=== PATIENT | female | born 1995 | race Caucasian/White ===

== ENCOUNTER 2020-12-27 19:56 | Emergency (ER) | payer MEDICAID ==
[~2020-12-27] VITALS: Ht 162.6 cm; Wt 102.0 kg
[2020-12-27 19:58] VITALS: BP 139/83
[2020-12-27 21:19] LABS: BASOPHILS % 0.7 % (0.0-2.0); EOSINOPHILS % 3.4 % (0.0-5.0); HEMATOCRIT. 40.6 % (36.0-48.0); HEMOGLOBIN. 14.3 g/dL (12.0-16.0); LYMPHOCYTES % 24.6 % (20.0-50.0); MEAN CORPUSCULAR HEMOGLOBIN 32.5 pg (28.0-32.0); MEAN CORPUSCULAR VOLUME 92.1 fL (81.0-99.0); MEAN PLATELET VOLUME 9.2 fl (7.4-10.4); MONOCYTES % 9.5 % (2.0-8.0); NEUTROPHILS % 61.8 % (40.0-76.0); PLATELET 295 x1000/uL (130-400); RED BLOOD CELL COUNT 4.41 mill/uL (4.2-5.4); RED CELL DISTRIBUTION WIDTH 12.8 % (11.6-14.6)
[2020-12-27 21:22] LABS: CHLORIDE 106 mEq/L (98-107)
[2020-12-27 22:10] LABS: CLARITY URINE CLEAR (CLEAR); COLOR URINE YELLOW (YELLOW); KETONES URINE NEGATIVE (NEGATIVE); LEUKOCYTE ESTERASE URINE NEGATIVE (NEGATIVE); NITRITE URINE NEGATIVE (NEGATIVE); OCCULT BLOOD URINE 1+ (NEGATIVE); PH URINE 6.5 (4.5-8.0); PROTEIN URINE NEGATIVE (NEGATIVE); SPECIFIC GRAVITY URINE 1.007 (1.005-1.030); UROBILINOGEN URINE 0.2 E.U./dL (0.2-1.0)
[2020-12-27 22:33] LABS: *AMPHETAMINES SCREEN URINE NEGATIVE (NEGATIVE); *BARBITURATES SCREEN URINE NEGATIVE (NEGATIVE); *BENZODIAZEPINES SCREEN URINE NEGATIVE (NEGATIVE); *COCAINE SCREEN URINE NEGATIVE (NEGATIVE); METHADONE URINE SCREEN NEGATIVE (NEGATIVE); OPIATES URINE SCREEN NEGATIVE (NEGATIVE)
[2020-12-27 22:34] LABS: CANNABINOID URINE SCREEN NEGATIVE (NEGATIVE); PHENCYCLIDINE URINE SCREEN NEGATIVE (NEGATIVE)
== END 2020-12-27 23:20 | disposition home or self-care (01) ==
LOC: ER 19:56
DX: R55 Syncope and collapse (principal); R03.0 Elevated blood-pressure reading, without diagnosis of hypertension; R94.5 Abnormal results of liver function studies
CPT/HCPCS: 36415; 80053; 80305; 81003; 81025; 85025; 99283

== ENCOUNTER 2021-03-14 21:41 | Emergency (ER) | payer MEDICAID ==
[~2021-03-14] VITALS: Ht 162.6 cm; Wt 105.0 kg
[2021-03-14 22:06] VITALS: BP 122/78
[2021-03-14] MEDS ORDERED: IBUPROFEN 600MG TABLET PO STA (22:55)
[2021-03-14] MEDS ORDERED: OFLO5DRO4 LEFT EAR (23:57)
[2021-03-14] MEDS ORDERED: NAPR-681 PO (23:57)
[2021-03-14] MEDS ORDERED: CEPH500T PO (23:57)
== END 2021-03-15 00:06 | disposition home or self-care (01) ==
LOC: ER 21:41
DX: H60.92 Unspecified otitis externa, left ear (principal); J02.9 Acute pharyngitis, unspecified
CPT/HCPCS: 87070; 87430; 99283

== ENCOUNTER 2021-06-20 18:51 | Emergency (ER) | payer MEDICAID ==
[~2021-06-20 18:51] MED LIST: CEPH500T PO; NAPR-681 PO; OFLO5DRO4 LEFT EAR
== END 2021-06-20 20:07 | disposition left against medical advice (07) ==
LOC: ER 18:56
DX: Z53.21 Procedure and treatment not carried out due to patient leaving prior to being seen by health care provider (principal)

== ENCOUNTER 2021-06-27 15:13 | Emergency (ER) | payer MEDICAID ==
[~2021-06-27] VITALS: Ht 162.6 cm; Wt 104.0 kg
[2021-06-27 15:24] VITALS: BP 138/72
[2021-06-27] MEDS ORDERED: ACETAMINOPHEN 325MG TABLET PO ONE (16:00)
[2021-06-27] MEDS ORDERED: NAPROXEN 250MG TABLET PO NR (16:45)
[2021-06-27 16:53] LABS: CHLORIDE 106 mEq/L (98-107)
[2021-06-27 16:55] LABS: BASOPHILS % 0.3 % (0.0-2.0); EOSINOPHILS % 3.3 % (0.0-5.0); HEMATOCRIT. 40.2 % (36.0-48.0); HEMOGLOBIN. 13.6 g/dL (12.0-16.0); LYMPHOCYTES % 19.8 % (20.0-50.0); MEAN CORPUSCULAR HEMOGLOBIN 30.7 pg (28.0-32.0); MEAN CORPUSCULAR VOLUME 90.8 fL (81.0-99.0); MEAN PLATELET VOLUME 8.8 fl (7.4-10.4); MONOCYTES % 7.8 % (2.0-8.0); NEUTROPHILS % 68.8 % (40.0-76.0); PLATELET 337 x1000/uL (130-400); RED BLOOD CELL COUNT 4.43 mill/uL (4.2-5.4); RED CELL DISTRIBUTION WIDTH 12.9 % (11.6-14.6)
[2021-06-27 17:29] LABS: CLARITY URINE CLEAR (CLEAR); COLOR URINE YELLOW (YELLOW); KETONES URINE NEGATIVE (NEGATIVE); LEUKOCYTE ESTERASE URINE TRACE (NEGATIVE); NITRITE URINE NEGATIVE (NEGATIVE); OCCULT BLOOD URINE 1+ (NEGATIVE); PH URINE 6.5 (4.5-8.0); PROTEIN URINE NEGATIVE (NEGATIVE); SPECIFIC GRAVITY URINE 1.018 (1.005-1.030); UROBILINOGEN URINE 0.2 E.U./dL (0.2-1.0)
[2021-06-27] MEDS ORDERED: NITR-87 MT (18:23)
== END 2021-06-27 19:06 | disposition home or self-care (01) ==
LOC: ER 15:13
DX: N39.0 Urinary tract infection, site not specified (principal)
CPT/HCPCS: 36415; 76830; 76856; 80048; 81003; 81025; 85025; 99284

== ENCOUNTER 2021-07-07 20:25 | Emergency (ER) | payer MEDICAID ==
[~2021-07-07] VITALS: Ht 162.6 cm; Wt 109.0 kg
[~2021-07-07 20:25] MED LIST changes: +DILT300C53 MT; +NITR-87 MT
[2021-07-07] MEDS ORDERED: SODIUM CHLORIDE 0.9% 1,000 ML IV ONE (20:45)
[2021-07-07 21:21] LABS: BASOPHILS % 0.5 % (0.0-2.0); HEMATOCRIT. 44.1 % (36.0-48.0); HEMOGLOBIN. 14.8 g/dL (12.0-16.0); LYMPHOCYTES % 33.1 % (20.0-50.0); MEAN CORPUSCULAR VOLUME 92.3 fL (81.0-99.0); MEAN PLATELET VOLUME 9.1 fl (7.4-10.4); MONOCYTES % 10.5 % (2.0-8.0); NEUTROPHILS % 53.9 % (40.0-76.0); PLATELET 251 x1000/uL (130-400); RED BLOOD CELL COUNT 4.77 mill/uL (4.2-5.4); RED CELL DISTRIBUTION WIDTH 13.3 % (11.6-14.6)
[2021-07-07 21:24] LABS: CHLORIDE 106 mEq/L (98-107)
[2021-07-07 21:28] LABS: ETHANOL BLOOD < 10 mg/dL
[2021-07-07 21:38] LABS: HCG SCREEN NEGATIVE
[2021-07-07 22:03] LABS: CLARITY URINE CLEAR (CLEAR); COLOR URINE YELLOW (YELLOW); KETONES URINE NEGATIVE (NEGATIVE); LEUKOCYTE ESTERASE URINE TRACE (NEGATIVE); NITRITE URINE NEGATIVE (NEGATIVE); OCCULT BLOOD URINE 1+ (NEGATIVE); PH URINE 7.5 (4.5-8.0); PROTEIN URINE NEGATIVE (NEGATIVE); SPECIFIC GRAVITY URINE 1.009 (1.005-1.030); UROBILINOGEN URINE 0.2 E.U./dL (0.2-1.0)
[2021-07-07 22:12] LABS: *AMPHETAMINES SCREEN URINE NEGATIVE (NEGATIVE); *BARBITURATES SCREEN URINE NEGATIVE (NEGATIVE); *BENZODIAZEPINES SCREEN URINE NEGATIVE (NEGATIVE); *COCAINE SCREEN URINE NEGATIVE (NEGATIVE); METHADONE URINE SCREEN NEGATIVE (NEGATIVE)
[2021-07-07 22:13] LABS: CANNABINOID URINE SCREEN NEGATIVE (NEGATIVE); OPIATES URINE SCREEN NEGATIVE (NEGATIVE); PHENCYCLIDINE URINE SCREEN NEGATIVE (NEGATIVE)
[2021-07-07 23:50] VITALS: BP 118/63
== END 2021-07-07 23:59 | disposition home or self-care (01) ==
LOC: ER 20:25
DX: R07.89 Other chest pain (principal); F41.9 Anxiety disorder, unspecified; Z98.890 Other specified postprocedural states
CPT/HCPCS: 36415; 71045; 80053; 80305; 80320; 81003; 81025; 83690; 83880; 84484; 84703; 85025; 93005; 96360; 96361; 99285; J7030; G0480

== ENCOUNTER 2021-07-21 15:02 | Emergency (ER) | payer MEDICAID ==
[~2021-07-21] VITALS: Ht 162.6 cm; Wt 102.0 kg
[~2021-07-21 15:02] MED LIST changes: -CEPH500T PO; -NITR-87 MT
[2021-07-21 16:24] LABS: BASOPHILS % 0.3 % (0.0-2.0); EOSINOPHILS % 1.9 % (0.0-5.0); HEMATOCRIT. 41.1 % (36.0-48.0); HEMOGLOBIN. 13.7 g/dL (12.0-16.0); LYMPHOCYTES % 15.8 % (20.0-50.0); MEAN CORPUSCULAR HEMOGLOBIN 30.2 pg (28.0-32.0); MEAN CORPUSCULAR VOLUME 90.6 fL (81.0-99.0); MEAN PLATELET VOLUME 9.1 fl (7.4-10.4); MONOCYTES % 7.9 % (2.0-8.0); NEUTROPHILS % 74.1 % (40.0-76.0); PLATELET 342 x1000/uL (130-400); RED BLOOD CELL COUNT 4.53 mill/uL (4.2-5.4); RED CELL DISTRIBUTION WIDTH 12.6 % (11.6-14.6)
[2021-07-21 16:29] LABS: CHLORIDE 106 mEq/L (98-107)
[2021-07-21] MEDS ORDERED: POTASSIUM CHLORIDE 20MEQ TABLET SR PO ONE (17:45)
[2021-07-21 19:02] VITALS: BP 136/68
== END 2021-07-21 20:00 | disposition left against medical advice (07) ==
LOC: ER 15:02
DX: R00.2 Palpitations (principal); E87.6 Hypokalemia; Z98.890 Other specified postprocedural states
CPT/HCPCS: 36415; 71045; 80053; 84484; 85025; 93005; 99285

== ENCOUNTER 2022-07-24 17:58 | Emergency (ER) | payer MEDICAID ==
[~2022-07-24] VITALS: Ht 167.6 cm; Wt 80.0 kg
[2022-07-24] MEDS ORDERED: IBUPROFEN 600MG TABLET PO STA (23:12)
[2022-07-24] MEDS ORDERED: VANCOMYCIN 1G PREMIX 200 ML IV ONE (23:15)
[2022-07-24] MEDS ORDERED: PIPERACILLIN/TAZ 3.375G PREMIX 50 ML IV ONE (23:15)
[2022-07-24] MEDS ORDERED: SODIUM CHLORIDE 0.9% 1000ML BAG (SEPSIS BOLUS) IV ONE (23:15)
[2022-07-24 23:41] LABS: BASOPHILS % 0.3 % (0.0-2.0); EOSINOPHILS % 1.7 % (0.0-5.0); HEMATOCRIT. 40.7 % (36.0-48.0); HEMOGLOBIN. 13.9 g/dL (12.0-16.0); LYMPHOCYTES % 21.2 % (20.0-50.0); MEAN CORPUSCULAR HEMOGLOBIN 31.3 pg (28.0-32.0); MEAN CORPUSCULAR VOLUME 91.5 fL (81.0-99.0); MONOCYTES % 10.4 % (2.0-8.0); NEUTROPHILS % 66.4 % (40.0-76.0); PLATELET 284 x1000/uL (130-400); RED BLOOD CELL COUNT 4.45 mill/uL (4.2-5.4); RED CELL DISTRIBUTION WIDTH 13.5 % (11.6-14.6)
[2022-07-24 23:49] LABS: CHLORIDE 101 mEq/L (98-107)
[2022-07-24 23:50] LABS: PROTHROMBIN TIME 10.6 sec (9.6-11.0)
[2022-07-24 23:52] LABS: HCG SCREEN NEGATIVE
[2022-07-25 00:16] LABS: CLARITY URINE CLOUDY (CLEAR); COLOR URINE YELLOW (YELLOW); KETONES URINE TRACE (NEGATIVE); LEUKOCYTE ESTERASE URINE 2+ (NEGATIVE); NITRITE URINE NEGATIVE (NEGATIVE); OCCULT BLOOD URINE 2+ (NEGATIVE); PH URINE 6.5 (4.5-8.0); PROTEIN URINE TRACE (NEGATIVE); SPECIFIC GRAVITY URINE 1.019 (1.005-1.030); UROBILINOGEN URINE 0.2 E.U./dL (0.2-1.0)
[2022-07-25] MEDS ORDERED: CEPH500C2 MT (02:51)
[2022-07-25] MEDS ORDERED: IBUP-2028 MT (02:51)
[2022-07-25 03:08] VITALS: BP 122/79
[2022-07-25] MEDS ORDERED: IOHEXOL-300 100 ML BOTTLE ONE (04:42)
== END 2022-07-25 03:10 | disposition home or self-care (01) ==
LOC: ER 18:24
DX: N39.0 Urinary tract infection, site not specified (principal); J02.9 Acute pharyngitis, unspecified; M54.2 Cervicalgia; Z98.890 Other specified postprocedural states; Z20.822 Contact with and (suspected) exposure to COVID-19
CPT/HCPCS: 36415; 70491; 71045; 80053; 81003; 83605; 84145; 84443; 84484; 84703; 85025; 85379; 85610; 87040; 87070; 87086; 87426; 87430; 87804; 96374; 96375; 99285; J2543; J3370; J7030; Q9967

== ENCOUNTER 2022-09-17 16:46 | Emergency (ER) | payer MEDICAID ==
[~2022-09-17] VITALS: Ht 160 cm; Wt 100.0 kg
[~2022-09-17 16:46] MED LIST changes: +CEPH500C2 MT; +IBUP-2028 MT
[2022-09-17] MEDS ORDERED: SODIUM CHLORIDE 0.9% 1,000 ML IV ONE (17:15)
[2022-09-17] MEDS ORDERED: ACETAMINOPHEN 325MG TABLET PO ONE (17:15)
[2022-09-17] MEDS: ONDANSETRON 4MG ODT PO ONE ×2 (17:15→18:35)
[2022-09-17 17:20] VITALS: BP 122/84
[2022-09-17 17:44] LABS: BASOPHILS % 0.4 % (0.0-2.0); EOSINOPHILS % 2.6 % (0.0-5.0); HEMOGLOBIN. 13.2 g/dL (12.0-16.0); LYMPHOCYTES % 21.4 % (20.0-50.0); MEAN CORPUSCULAR VOLUME 91.7 fL (81.0-99.0); MEAN PLATELET VOLUME 9.1 fl (7.4-10.4); MONOCYTES % 7.5 % (2.0-8.0); NEUTROPHILS % 68.1 % (40.0-76.0); PLATELET 306 x1000/uL (130-400); RED BLOOD CELL COUNT 4.26 mill/uL (4.2-5.4); RED CELL DISTRIBUTION WIDTH 13.4 % (11.6-14.6)
[2022-09-17 17:53] LABS: CHLORIDE 105 mEq/L (98-107)
[2022-09-17 18:03] LABS: HCG SCREEN NEGATIVE
[2022-09-17 18:10] LABS: ETHANOL BLOOD < 10 mg/dL
== END 2022-09-17 23:15 | disposition home or self-care (01) ==
LOC: ER 16:46
DX: R42 Dizziness and giddiness (principal); R00.0 Tachycardia, unspecified; R00.2 Palpitations; Z87.440 Personal history of urinary (tract) infections
CPT/HCPCS: 36415; 71045; 80053; 80320; 83690; 83880; 84443; 84484; 84703; 85025; 85379; 93005; 96360; 99285; J7030; Q0162; G0480

== ENCOUNTER 2022-11-30 18:20 | Emergency (ER) | payer MEDICAID ==
[~2022-11-30] VITALS: Ht 167.6 cm; Wt 91.0 kg
[2022-11-30] MEDS ORDERED: NITROGLYCERIN 0.4MG TABLET SL SL PRN (19:00)
[2022-11-30] MEDS ORDERED: SODIUM CHLORIDE 0.9% 1,000 ML IV ONE (19:00)
[2022-11-30] MEDS ORDERED: ASPIRIN 81MG TABLET PO ONE (19:00)
[2022-11-30] MEDS ORDERED: CEFTRIAXONE 1GM PREMIX 50 ML IV ONE (19:00)
[2022-11-30 19:18] LABS: BASOPHILS % 0.5 % (0.0-2.0); EOSINOPHILS % 2.4 % (0.0-5.0); HEMATOCRIT. 40.5 % (36.0-48.0); HEMOGLOBIN. 13.7 g/dL (12.0-16.0); LYMPHOCYTES % 19.5 % (20.0-50.0); MEAN CORPUSCULAR HEMOGLOBIN 30.5 pg (28.0-32.0); MEAN CORPUSCULAR VOLUME 90.2 fL (81.0-99.0); MEAN PLATELET VOLUME 9.5 fl (7.4-10.4); MONOCYTES % 7.5 % (2.0-8.0); NEUTROPHILS % 70.1 % (40.0-76.0); PLATELET 308 x1000/uL (130-400); RED BLOOD CELL COUNT 4.49 mill/uL (4.2-5.4); RED CELL DISTRIBUTION WIDTH 13.7 % (11.6-14.6)
[2022-11-30 19:25] LABS: CHLORIDE 107 mEq/L (98-107)
[2022-11-30 19:28] LABS: HCG SCREEN POSITIVE
[2022-11-30 20:26] LABS: D-DIMER 0.49 mg/L FEU (<0.50); PARTIAL THROMBOPLASTIN TIME 28.2 sec (23.4-31.0); PROTHROMBIN TIME 10.5 sec (9.6-11.0)
[2022-11-30] MEDS ORDERED: AZITHROMYCIN 500 MG TABLET PO ONE (21:45)
[2022-11-30] MEDS ORDERED: LABE100T9 MT (21:52)
[2022-11-30 22:00] VITALS: BP 112/89
== END 2022-11-30 22:48 | disposition home or self-care (01) ==
LOC: ER 18:20
DX: I47.1 Supraventricular tachycardia (principal); N89.8 Other specified noninflammatory disorders of vagina; Z98.890 Other specified postprocedural states
CPT/HCPCS: 36415; 71045; 76801; 76817; 80053; 81025; 84484; 84702; 84703; 85025; 85379; 85610; 85730; 87491; 87591; 93005; 96361; 96365; 99285; J0696; J7030; Z7610

== ENCOUNTER 2022-12-04 16:14 | Emergency (ER) | payer MEDICAID ==
[~2022-12-04] VITALS: Ht 167.6 cm; Wt 85.0 kg
[~2022-12-04 16:14] MED LIST changes: +LABE100T9 MT
[2022-12-04] MEDS ORDERED: DILTIAZEM HCL 5MG/ML 5ML VIAL IV ONE (17:00)
[2022-12-04] MEDS ORDERED: SODIUM CHLORIDE 0.9% 1,000 ML IV ONE (17:00)
[2022-12-04 17:10] LABS: BASOPHILS % 0.3 % (0.0-2.0); EOSINOPHILS % 1.7 % (0.0-5.0); HEMATOCRIT. 40.7 % (36.0-48.0); HEMOGLOBIN. 13.9 g/dL (12.0-16.0); LYMPHOCYTES % 17.1 % (20.0-50.0); MEAN CORPUSCULAR HEMOGLOBIN 30.8 pg (28.0-32.0); MEAN CORPUSCULAR VOLUME 90.1 fL (81.0-99.0); MEAN PLATELET VOLUME 9.1 fl (7.4-10.4); MONOCYTES % 8.1 % (2.0-8.0); NEUTROPHILS % 72.8 % (40.0-76.0); PLATELET 340 x1000/uL (130-400); RED BLOOD CELL COUNT 4.52 mill/uL (4.2-5.4); RED CELL DISTRIBUTION WIDTH 13.5 % (11.6-14.6)
[2022-12-04 17:17] LABS: CHLORIDE 108 mEq/L (98-107)
[2022-12-04 17:30] LABS: B-HCG QUANTITATIVE 52 mIU/mL (<3)
[2022-12-04 21:26] LABS: CLARITY URINE CLEAR (CLEAR); COLOR URINE YELLOW (YELLOW); KETONES URINE NEGATIVE (NEGATIVE); LEUKOCYTE ESTERASE URINE TRACE (NEGATIVE); NITRITE URINE NEGATIVE (NEGATIVE); OCCULT BLOOD URINE 1+ (NEGATIVE); PROTEIN URINE NEGATIVE (NEGATIVE); SPECIFIC GRAVITY URINE 1.015 (1.005-1.030); UROBILINOGEN URINE 0.2 E.U./dL (0.2-1.0)
[2022-12-04] MEDS ORDERED: METR-167 MT (21:55)
[2022-12-04 23:07] VITALS: BP 120/75
== END 2022-12-04 23:14 | disposition home or self-care (01) ==
LOC: ER 16:14
DX: R00.2 Palpitations (principal); F41.9 Anxiety disorder, unspecified; Z87.440 Personal history of urinary (tract) infections; Z79.899 Other long term (current) drug therapy
CPT/HCPCS: 36415; 71045; 76801; 76817; 80053; 81003; 81025; 83880; 84443; 84484; 84702; 85025; 87210; 93005; 96361; 96374; 99291; J3490; J7030; Z7610

== ENCOUNTER 2022-12-19 00:51 | Emergency (ER) | payer MEDICAID ==
[~2022-12-19] VITALS: Ht 162.6 cm; Wt 102.0 kg
[~2022-12-19 00:51] MED LIST changes: +METR-167 MT
[2022-12-19 00:59] VITALS: BP 118/91
[2022-12-19 01:30] LABS: BASOPHILS % 0.5 % (0.0-2.0); EOSINOPHILS % 3.9 % (0.0-5.0); HEMATOCRIT. 38.3 % (36.0-48.0); HEMOGLOBIN. 13.1 g/dL (12.0-16.0); LYMPHOCYTES % 28.1 % (20.0-50.0); MEAN CORPUSCULAR HEMOGLOBIN 30.9 pg (28.0-32.0); MEAN CORPUSCULAR VOLUME 90.6 fL (81.0-99.0); MEAN PLATELET VOLUME 8.5 fl (7.4-10.4); MONOCYTES % 8.6 % (2.0-8.0); NEUTROPHILS % 58.9 % (40.0-76.0); PLATELET 333 x1000/uL (130-400); RED BLOOD CELL COUNT 4.23 mill/uL (4.2-5.4); RED CELL DISTRIBUTION WIDTH 13.7 % (11.6-14.6)
[2022-12-19 01:37] LABS: CLARITY URINE CLEAR (CLEAR); COLOR URINE YELLOW (YELLOW); KETONES URINE NEGATIVE (NEGATIVE); LEUKOCYTE ESTERASE URINE 2+ (NEGATIVE); NITRITE URINE NEGATIVE (NEGATIVE); OCCULT BLOOD URINE 1+ (NEGATIVE); PH URINE 6.5 (4.5-8.0); PROTEIN URINE NEGATIVE (NEGATIVE); SPECIFIC GRAVITY URINE 1.014 (1.005-1.030); UROBILINOGEN URINE 0.2 E.U./dL (0.2-1.0)
[2022-12-19 01:38] LABS: INR 0.9; PROTHROMBIN TIME 9.9 sec (9.6-11.0)
[2022-12-19 01:41] LABS: CHLORIDE 107 mEq/L (98-107)
[2022-12-19] MEDS ORDERED: ONDA4TAB50 PO (03:37)
[2022-12-19] MEDS ORDERED: BISM262T15 PO (03:37)
[2022-12-19] MEDS ORDERED: NAPR-681 PO (03:37)
== END 2022-12-19 04:20 | disposition home or self-care (01) ==
LOC: ER 01:18
DX: K52.9 Noninfective gastroenteritis and colitis, unspecified (principal); R11.2 Nausea with vomiting, unspecified; M54.9 Dorsalgia, unspecified; F41.9 Anxiety disorder, unspecified; R00.0 Tachycardia, unspecified; Z87.440 Personal history of urinary (tract) infections
CPT/HCPCS: 36415; 71045; 80053; 81003; 81025; 84484; 85025; 93005; 99285

== ENCOUNTER 2022-12-29 13:31 | Emergency (ER) | payer MEDICAID ==
[~2022-12-29] VITALS: Ht 165.1 cm; Wt 91.0 kg
[~2022-12-29 13:31] MED LIST changes: +BISM262T15 PO; +ONDA4TAB50 PO
[2022-12-29] MEDS ORDERED: ONDANSETRON HCL 4MG/2ML INJ IV STA (13:50)
[2022-12-29] MEDS ORDERED: KETOROLAC 30MG/ML VIAL IV STA (13:50)
[2022-12-29 13:51] VITALS: O2SAT 100
[2022-12-29] MEDS ORDERED: SODIUM CHLORIDE 0.9% 1,000 ML IV ONE (14:00)
[2022-12-29 14:17] LABS: BASOPHILS % 0.6 % (0.0-2.0); HEMATOCRIT. 39.7 % (36.0-48.0); HEMOGLOBIN. 13.6 g/dL (12.0-16.0); LYMPHOCYTES % 18.3 % (20.0-50.0); MEAN CORPUSCULAR HEMOGLOBIN 31.3 pg (28.0-32.0); MEAN CORPUSCULAR VOLUME 91.2 fL (81.0-99.0); MEAN PLATELET VOLUME 8.6 fl (7.4-10.4); MONOCYTES % 7.7 % (2.0-8.0); NEUTROPHILS % 71.4 % (40.0-76.0); PLATELET 309 x1000/uL (130-400); RED BLOOD CELL COUNT 4.35 mill/uL (4.2-5.4); RED CELL DISTRIBUTION WIDTH 14.1 % (11.6-14.6)
[2022-12-29 14:28] LABS: PROTHROMBIN TIME 10.5 sec (9.6-11.0)
[2022-12-29 14:34] LABS: CHLORIDE 105 mEq/L (98-107)
[2022-12-29 14:35] LABS: HCG SCREEN NEGATIVE
[2022-12-29 14:50] LABS: ETHANOL BLOOD < 10 mg/dL (-10)
[2022-12-29 15:00] VITALS: TEMP 97.9
[2022-12-29 15:54] LABS: CLARITY URINE CLEAR (CLEAR); COLOR URINE YELLOW (YELLOW); KETONES URINE NEGATIVE (NEGATIVE); LEUKOCYTE ESTERASE URINE NEGATIVE (NEGATIVE); NITRITE URINE NEGATIVE (NEGATIVE); OCCULT BLOOD URINE NEGATIVE (NEGATIVE); PROTEIN URINE NEGATIVE (NEGATIVE); SPECIFIC GRAVITY URINE 1.004 (1.005-1.030); UROBILINOGEN URINE 0.2 E.U./dL (0.2-1.0)
[2022-12-29 16:14] LABS: *AMPHETAMINES SCREEN URINE NEGATIVE (NEGATIVE); *BARBITURATES SCREEN URINE NEGATIVE (NEGATIVE); *BENZODIAZEPINES SCREEN URINE NEGATIVE (NEGATIVE); *COCAINE SCREEN URINE NEGATIVE (NEGATIVE); CANNABINOID URINE SCREEN NEGATIVE (NEGATIVE); METHADONE URINE SCREEN NEGATIVE (NEGATIVE); OPIATES URINE SCREEN NEGATIVE (NEGATIVE); PHENCYCLIDINE URINE SCREEN NEGATIVE (NEGATIVE)
[2022-12-29] MEDS ORDERED: IBUP-2029 MT (16:39)
[2022-12-29] MEDS ORDERED: ONDA4TAB50 MT (16:39)
[2022-12-29] MEDS ORDERED: IOHEXOL-300 100 ML BOTTLE ONE (16:47)
[2022-12-29 17:44] VITALS: BP 135/70; PULSE 70; RESP 20
== END 2022-12-29 17:53 | disposition home or self-care (01) ==
LOC: ER 13:31
DX: R10.9 Unspecified abdominal pain (principal); Z79.899 Other long term (current) drug therapy
CPT/HCPCS: 80053; 80305; 81003; 80320; 84703; 83605; 83690; 85025; 85610; 36415; 74177; 96361; 96374; 96375; 99285; Q9967; J1885; J2405; J7030; Z7610 ×2; G0480

== ENCOUNTER 2023-01-27 20:20 | Emergency (ER) | payer MEDICAID ==
[~2023-01-27] VITALS: Ht 162.6 cm; Wt 102.0 kg
[~2023-01-27 20:20] MED LIST changes: +IBUP-2029 MT; +ONDA4TAB50 MT
[2023-01-27 20:27] VITALS: TEMP 99; O2SAT 98
[2023-01-27 21:40] LABS: BASOPHILS % 0.3 % (0.0-2.0); EOSINOPHILS % 2.4 % (0.0-5.0); HEMATOCRIT. 38.9 % (36.0-48.0); HEMOGLOBIN. 13.4 g/dL (12.0-16.0); MEAN CORPUSCULAR VOLUME 90.1 fL (81.0-99.0); MEAN PLATELET VOLUME 8.9 fl (7.4-10.4); MONOCYTES % 8.1 % (2.0-8.0); NEUTROPHILS % 68.2 % (40.0-76.0); PLATELET 311 x1000/uL (130-400); RED BLOOD CELL COUNT 4.32 mill/uL (4.2-5.4); RED CELL DISTRIBUTION WIDTH 13.8 % (11.6-14.6)
[2023-01-27 21:50] LABS: CHLORIDE 106 mEq/L (98-107)
[2023-01-27 23:20] VITALS: BP 128/82; PULSE 94; RESP 18
== END 2023-01-27 23:23 | disposition home or self-care (01) ==
LOC: ER 21:15
DX: R42 Dizziness and giddiness (principal); H53.8 Other visual disturbances; R53.1 Weakness; F41.9 Anxiety disorder, unspecified; R00.0 Tachycardia, unspecified; Z87.440 Personal history of urinary (tract) infections
CPT/HCPCS: 36415; 71045; 80053; 83880; 84484; 85025; 93005; 99284

== ENCOUNTER 2023-01-31 15:58 | Emergency (ER) | payer MEDICAID ==
[~2023-01-31] VITALS: Ht 167.6 cm; Wt 79.0 kg
[2023-01-31 16:14] VITALS: O2SAT 97
[2023-01-31] MEDS ORDERED: SODIUM CHLORIDE 0.9% 1,000 ML IV ONE ×3 (17:00→18:15)
[2023-01-31 17:16] LABS: BASOPHILS % 0.4 % (0.0-2.0); EOSINOPHILS % 2.1 % (0.0-5.0); HEMATOCRIT. 40.5 % (36.0-48.0); HEMOGLOBIN. 13.9 g/dL (12.0-16.0); LYMPHOCYTES % 9.6 % (20.0-50.0); MEAN CORPUSCULAR HEMOGLOBIN 31.3 pg (28.0-32.0); MEAN CORPUSCULAR HGB CONC 34.4 g/dL (31.0-37.0); MONOCYTES % 10.6 % (2.0-8.0); NEUTROPHILS % 77.3 % (40.0-76.0); PLATELET 305 x1000/uL (130-400); RED BLOOD CELL COUNT 4.45 mill/uL (4.2-5.4); RED CELL DISTRIBUTION WIDTH 13.4 % (11.6-14.6); WHITE BLOOD COUNT 8.5 x1000/uL (4.5-11.0)
[2023-01-31 17:19] LABS: CHLORIDE 101 mEq/L (98-107); INDEX HEMOLYSI 1 (1-3); INDEX ICTERIC 1 (1-4); INDEX LIPEMIC 1 (1-3); POTASSIUM 3.8 mEq/L (3.5-5.1); SODIUM 134 mEq/L (136-145)
[2023-01-31 17:27] LABS: ALANINE AMINOTRANSFERASE 35 IU/L (13-61); ALBUMIN 3.9 g/dL (3.4-5.0); ASPARTATE AMINOTRANSFERASE 12 IU/L (15-37); BILIRUBIN TOTAL 0.2 mg/dL (0.1-1.0); CALCIUM 9.4 mg/dL (8.5-10.1); CARBON DIOXIDE 26 mEq/L (21-32); CREATININE 0.6 mg/dL (0.6-1.3); GLUCOSE 98 mg/dL (70-105); HCG SCREEN NEGATIVE; UREA NITROGEN BLOOD 8 mg/dL (7-21)
[2023-01-31] MEDS ORDERED: ACETAMINOPHEN 325MG TABLET PO STA (17:41)
[2023-01-31] MEDS ORDERED: DEXAMETHASONE 10 MG/ML VIAL IV ONE (18:15)
[2023-01-31 19:06] LABS: TROPONIN I HIGH SENSITIVITY < 4 ng/L (<54)
[2023-01-31 20:17] LABS: LACTIC ACID 2.1 mmol/L (0.4-2.0)
[2023-01-31 21:00] LABS: CLARITY URINE CLEAR (CLEAR); COLOR URINE YELLOW (YELLOW); GLUCOSE URINE NEGATIVE (NEGATIVE); KETONES URINE NEGATIVE (NEGATIVE); LEUKOCYTE ESTERASE URINE NEGATIVE (NEGATIVE); NITRITE URINE NEGATIVE (NEGATIVE); OCCULT BLOOD URINE TRACE (NEGATIVE); PROTEIN URINE NEGATIVE (NEGATIVE); SPECIFIC GRAVITY URINE 1.004 (1.005-1.030); UROBILINOGEN URINE 0.2 E.U./dL (0.2-1.0)
[2023-01-31 21:02] LABS: BACTERIA URINE NONE SEEN; YEAST URINE NONE SEEN
[2023-01-31] MEDS ORDERED: IBUP-2028 MT (21:14)
[2023-01-31] MEDS ORDERED: NIRM1TAB PO (21:14)
[2023-01-31 21:29] LABS: RBC URINE 0-2 /hpf (0-2); SQUAMOUS EPITHELIAL CELL URINE RARE /lpf (RARE/1+)
[2023-01-31 21:30] LABS: WBC URINE 0-2 /hpf (0-2)
[2023-01-31 22:10] VITALS: BP 119/78; PULSE 96; RESP 18; TEMP 98.2
== END 2023-02-01 00:57 | disposition home or self-care (01) ==
LOC: ER 16:18 → EDBEDREQ 18:10 → ER 02-01 00:57 → CANBEDREQ 02-02 22:08
DX: U07.1 COVID-19 (principal); R07.89 Other chest pain; R00.0 Tachycardia, unspecified; F41.9 Anxiety disorder, unspecified; Z87.440 Personal history of urinary (tract) infections; Z79.899 Other long term (current) drug therapy
CPT/HCPCS: 99285; 96360; 71045; 87426; 80053; 81003; 84703; 83880; 83605; 84443; 85025; 85379; 87040; 87086; 84484; 36415; 93005; J7030; C9803